=== PATIENT | male | born 1940 | race Caucasian/White ===

== ENCOUNTER 2022-03-23 12:34 | Emergency (ER) | payer MEDICARE ==
[~2022-03-23] VITALS: Ht 165.1 cm; Wt 58.1 kg
--- NOTE | 2022-03-23 13:15 | NUR ---
patient to radiology for head ct scan via gurney.
--- NOTE | 2022-03-23 13:31 | NUR ---
dr scott at bedside for eval.
--- NOTE | 2022-03-23 14:10 | NUR ---
CALLED [facility] ETA 60-70 MINUTES
[2022-03-23] MEDS ORDERED: TDAP [DIPH/PERTUSSIS/TET] 0.5 ML VIAL IM ONE ×2 (14:30→14:34)
--- NOTE | 2022-03-23 15:07 | NUR ---
REPORT GIVEN TO ROSELINE FOR FILIPE
--- NOTE | 2022-03-23 15:58 | NUR ---
[facility] UPDATED ETA 20-30 MINUTES
--- NOTE | 2022-03-23 16:51 | NUR ---
CALLED [facility] FOR UPDATE ETA 60 MINS. PER MIS
[2022-03-23 18:32] VITALS: BP 115/65
--- NOTE | 2022-03-23 18:32 | NUR ---
tranported back to snf. report given.
== END 2022-03-23 18:33 ==
LOC: ER 12:40
DX: S01.112A Laceration without foreign body of left eyelid and periocular area, initial encounter (principal); S09.90XA Unspecified injury of head, initial encounter; I10 Essential (primary) hypertension; E11.9 Type 2 diabetes mellitus without complications; E78.5 Hyperlipidemia, unspecified; F25.9 Schizoaffective disorder, unspecified; F41.9 Anxiety disorder, unspecified; G20 Parkinson's disease; W18.39XA Other fall on same level, initial encounter; Y93.89 Activity, other specified; Y92.89 Other specified places as the place of occurrence of the external cause; Y99.8 Other external cause status
CPT/HCPCS: 70450-TC; 90715

== ENCOUNTER 2022-09-17 10:30 | Inpatient (IN) | payer MEDICARE ==
[~2022-09-17] VITALS: Ht 162.6 cm; Wt 56.2 kg
--- NOTE | 2022-09-17 10:40 | NUR ---
TECH AT BEDSIDE FOR EKG
--- NOTE | 2022-09-17 10:45 | NUR ---
Blood drawn by Granite Polisher Apprentice at bedside
[2022-09-17 10:59] LABS: BASOPHILS % (AUTO) 0.2 % (0.0-2.0); EOSINOPHILS % (AUTO) 0.1 % (0.0-6.0); HEMATOCRIT 32 % (39-51); HEMOGLOBIN 9.9 g/dL (13.5-17.5); LYMPHOCYTES % (AUTO) 4.3 % (20.0-44.0); MEAN CORPUSCULAR HGB CONC 31 g/dl (31.0-36.0); MEAN CORPUSCULAR VOLUME 93 fL (80-96); MONOCYTES # (AUTO) 0.8 K/uL (0.1-1.30); MONOCYTES % (AUTO) 3.5 % (2.0-12.0); NEUTROPHILS # (AUTO) 21.6 K/uL (1.8-8.9); NEUTROPHILS % (AUTO) 91.9 % (43.0-81.0); PLATELET COUNT (AUTO) 378 K/uL (150-450); RED BLOOD CELL COUNT(AUTO) 3.37 MIL/uL (4.5-6.0); WHITE BLOOD COUNT (AUTO) 23.5 K/uL (4.3-11.0)
--- NOTE | 2022-09-17 11:09 | NUR ---
COVID SWAB COLLECTED AND SENT TO LAB
[2022-09-17] MEDS ORDERED: ACET-868 GT (11:25)
[2022-09-17] MEDS ORDERED: ALLA266C2 TP (11:25)
[2022-09-17] MEDS ORDERED: COLL30OI TP (11:25)
[2022-09-17] MEDS ORDERED: ACET650S26 GT (11:25)
[2022-09-17] MEDS ORDERED: NA P133E RC (11:25)
[2022-09-17] MEDS ORDERED: MULT-447 GT (11:25)
[2022-09-17] MEDS ORDERED: BISA10SU11 RC (11:25)
[2022-09-17] MEDS ORDERED: SITA1TAB6 GT (11:25)
[2022-09-17] MEDS ORDERED: LISI10TA29 GT (11:25)
[2022-09-17] MEDS ORDERED: GENT5DRO4 EACHEYE (11:25)
[2022-09-17] MEDS ORDERED: ASCO-340 TD (11:25)
[2022-09-17] MEDS ORDERED: GEL100GE TD (11:25)
[2022-09-17] MEDS ORDERED: NATE120T6 GT (11:25)
[2022-09-17] MEDS ORDERED: BACL10TA GT (11:25)
[2022-09-17] MEDS ORDERED: SENN-261 GT (11:25)
[2022-09-17] MEDS ORDERED: CARB1TAB21 GT (11:25)
[2022-09-17] MEDS ORDERED: MAGN400O6 GT (11:25)
[2022-09-17] MEDS ORDERED: AMIN30LI2 GT (11:25)
[2022-09-17] MEDS ORDERED: INSU100V10 SQ (11:25)
[2022-09-17] MEDS ORDERED: ZINC220C6 GT (11:25)
[2022-09-17] MEDS ORDERED: ENOX40DI SQ (11:25)
[2022-09-17] MEDS ORDERED: INSU100V27 SQ (11:25)
[2022-09-17] MEDS ORDERED: POVI3780 TP (11:25)
[2022-09-17] MEDS ORDERED: ATOR10TA GT (11:25)
[2022-09-17] MEDS ORDERED: ALLO100T GT (11:25)
[2022-09-17] MEDS ORDERED: NUT.250L18 GT (11:25)
[2022-09-17] MEDS ORDERED: DOCU-141 GT (11:25)
--- NOTE | 2022-09-17 11:25 | NUR ---
URINE SPECIMEN COLLECTED AND SENT TO LAB
[2022-09-17] MEDS ORDERED: LEVOFLOXACIN 750 MG /D5W 150ML PIGGYBACK IV ONE ×3 (11:30→12:30)
[2022-09-17 11:45] LABS: BILIRUBIN,URINE NEGATIVE (NEGATIVE); COLOR,URINE YELLOW (YELLOW); LEUKOCYTE ESTERASE ,URINE NEGATIVE (NEGATIVE); NITRITE, URINE NEGATIVE (NEGATIVE); PH,URINE 7.5 (5.0-8.0); PROTEIN,URINE NEGATIVE (NEGATIVE); UGLUCOSE TRACE mg/dL (NEGATIVE)
[2022-09-17 11:52] LABS: CALCIUM, SERUM 9.2 mg/dL (8.5-10.1); CARBON DIOXIDE 27 mmol/L (21-32); CHLORIDE 99 mmol/L (98-107); CREATININE 0.7 mg/dL (0.6-1.3); GLUCOSE 175 mg/dL (74-106); POTASSIUM 3.9 mmol/L (3.5-5.1); SODIUM SERUM 133 mmol/L (136-145); UREA NITROGEN, BLOOD 25 mg/dL (7-18)
--- NOTE | 2022-09-17 11:52 | NUR ---
SOLDERING MACHINE OPERATOR AT BEDSIDE FOR XRAY
[2022-09-17 11:57] LABS: BACTERIA,URINE None seen /HPF (None Seen); RBC,URINE NONE SEEN /HPF (0-2); SQUAMOUS EPITHELIAL CELL,UR Few /HPF (None Seen); WBC,URINE 0-2 /HPF (0-3)
[2022-09-17 11:58] LABS: ALANINE AMINOTRANSFERASE 68 U/L (12-78); ALBUMIN 1.7 g/dL (3.4-5.0); ALKALINE PHOSPHATASE 161 U/L (46-116); ASPARTATE AMINOTRANSFERASE 41 U/L (15-37); BILIRUBIN,TOTAL 0.3 mg/dL (0.2-1.0); LIPASE 83 U/L (73-393); TOTAL PROTEIN, SERUM 6.5 g/dL (6.4-8.2)
--- NOTE | 2022-09-17 12:01 | NUR ---
CALLED DR. MEAZ [phone] NOT OUTSIDE [employer]S SALES PLEASE CALL [facility] [facility] [employer].
--- NOTE | 2022-09-17 12:02 | NUR ---
CORRIE CALLED CONVEYOR BELT REPAIRER PAGED. EDWARD
[2022-09-17] MEDS ORDERED: MAG HYDROX/AL HYDROX/SIMETH 30 ML UDC PO PRN (12:30)
[2022-09-17] MEDS ORDERED: ACETAMINOPHEN 650 MG/20.3 ML UDC GT PRN (12:30)
[2022-09-17] MEDS ORDERED: NA PHOS,M-B/NA PHOS,DI-BA 1 EA ENEMA RC PRN (12:30)
[2022-09-17] MEDS ORDERED: ACETAMINOPHEN 325 MG TABLET PO PRN (12:30)
[2022-09-17] MEDS ORDERED: Z GUARD REMEDY 4 OZ OINT TP PRN (12:30)
[2022-09-17] MEDS ORDERED: ONDANSETRON HCL/PF 4 MG/2 ML VIAL IVP PRN (12:30)
[2022-09-17] MEDS ORDERED: DEXTROSE 50%-WATER 50 ML DISP.SYRIN IV PRN (12:30)
[2022-09-17] MEDS ORDERED: MAGNESIUM HYDROXIDE 30 ML UDC PO PRN (12:30)
[2022-09-17] MEDS ORDERED: OSMOLITE 1.2 CAL 1,000 ML LIQUID GT PRN (12:30)
--- NOTE | 2022-09-17 12:54 | NUR ---
ROOM ASSIGNED 306.1 ADMITTING AWARE.
[2022-09-17] MEDS ORDERED: MEROPENEM 500 MG in IV NS 0.9% 50 ML IV SCH (13:00)
[2022-09-17] MEDS: BACLOFEN (10 MG) 10 MG TABLET GT SCH ×2 (13:00→17:13)
[2022-09-17] MEDS: CARBIDOPA/LEVODOPA 25/100 MG 1 UDTAB GT SCH ×3 (13:00→21:11)
--- NOTE | 2022-09-17 13:03 | NUR ---
REPORT GIVEN TO AMRIK HOOKS ROOM 306-1 FOR FILIPE
[2022-09-17 13:35] VITALS: BP 117/75
--- NOTE | 2022-09-17 13:37 | NUR ---
PT TRANSFERRED TO 306 VIA [facility] ACLS PROTOCOL. WARM HANDOFF GIVEN TO RN ASSIGNED.
--- NOTE | 2022-09-17 13:40 | NUR ---
SUPERVISOR STRIPPING ADMITTING NOTE ADMITTING A 81 YEAR OLD MALE TO UNIT AT 1335 VIA [facility] WITH DX OF SOB AND POSSIBLY PNEUMONIA. PT IS A/OX0 AND NOT ABLE TO MAKE NEEDS KNOWN. V/S TAKEN AND STABLE. PT IS ON O2 NC @2L. RATTLING HEARD IN LUNGS, AND USES ACCESSORY MUSCLES TO BREATHE, BUT NOT CURRENTLY IN RESPIRATORY DISTRESS. PT ON TELE MONITOR WITH CURRENT READING AT NORMAL SR AND HR AT 80. IV ACCESS ON L WRIST #22G. IV FLUIDS NORMAL SALINE INFUSING AT 75ML/HR. NO SIGNS OF SWELLING OR INFILTRATION. ABDOMEN SOFT AND NON TENDER AND NON DISTENDED WITH BOWEL SOUNDS HEARD IN ALL 4 QUADRANTS. PHOTOS TAKEN OF VARIOUS SKIN ISSUES. G-TUBE PRESENT, DRY WITH NORMAL COLORING. SAFETY MEASURES IN PLACE WITH BED IN LOWEST LOCKED POSITION, CALL LIGHT AND TRAY WITHIN REACH, SAID RAILS UP X3, BED ALARM ON. WILL CONTINUE TO MONITOR.
[2022-09-17] MEDS ORDERED: VANCOMYCIN IV SCH (14:00)
[2022-09-17] MEDS ORDERED: SODIUM CHLORIDE IV SCH (14:00)
[2022-09-17] MEDS: GENTAMICIN OPTH SOLN 0.3% 5 ML BOTTLE EACHEYE SCH ×3 (14:15→21:41)
[2022-09-17] MEDS ORDERED: VANCOMYCIN 1 GM in IV D5W 250ml IV ONE (15:00)
[2022-09-17 16:00] VITALS: BP 131/71
[2022-09-17] MEDS: BLOOD SUGAR DIAGNOSTIC 1 EACH STRIP VI SCH ×2 (17:36→21:48)
[2022-09-17] MEDS: INSULIN REGULAR, HUMAN 100 UNIT/ML 3 ML VIAL SQ PRN ×2 (17:39→22:07)
[2022-09-17 18:41] VITALS: BP 131/71
--- NOTE | 2022-09-17 19:05 | NUR ---
SHIRT SORTER CLOSINGG NOTE PT IN BED SLEEPING. PT IS A/OX0 AND NOT ABLE TO MAKE NEEDS KNOWN. V/S TAKEN AND STABLE. PT IS ON O2 NC @2L. RATTLING HEARD IN LUNGS, AND USES ACCESSORY MUSCLES TO BREATHE, BUT NOT CURRENTLY IN RESPIRATORY DISTRESS. PT ON TELE MONITOR WITH CURRENT READING AT NORMAL SR AND HR AT 80. IV ACCESS ON L WRIST #22G. IV FLUIDS NORMAL SALINE INFUSING AT 75ML/HR. NO SIGNS OF SWELLING OR INFILTRATION.G-TUBE FEEDING AT 50ML/HR OSMOLITE 1.2. PHOTOS TAKEN OF VARIOUS SKIN ISSUES. GSAFETY MEASURES IN PLACE WITH BED IN LOWEST LOCKED POSITION, CALL LIGHT AND TRAY WITHIN REACH, SAID RAILS UP X3, BED ALARM ON. WILL CONTINUE TO MONITOR.
--- NOTE | 2022-09-17 19:30 | NUR ---
MALTSTER OPENING NOTE RECEIVED PATIENT IN BED; AWAKE, ALERT AND ORIENTED X 0. NONVERBAL. ON O2 INHALATION @ 2 LPM VIA NASAL CANNULA; TOLERATING WELL. NOT IN ANY FORM OF RESPIRATORY OR CARDIAC DISTRESS. NO S/S OF PAIN OR DISCOMFORT NOTED AT THIS TIME. WITH IV ACCESS ON LEFT WRIST 20g; PATENT AND INTACT INFUSING WITH D5 1/2 NS 1L RUNNING @ 75 ML/HR; FLUSHES WELL. WITH G-TUBE IN PLACE; PATENT AND INTACT. NO RESIDUAL NOTED. TUBE FEEDING STARTED WITH OSMOLITE 1.2 REGULATED @ 50 ML/HR; FLUSHING WELL. SAFETY PRECAUTIONS IMPLEMENTED: HEAD OF BED ELEVATED, CALL LIGHT AND TABLE WITHIN REACH, SIDE RAILS UP X 3, BED IN LOWEST LOCKED POSITION. WILL CONTINUE PLAN OF CARE. Addendum: 09/18/22 at 0500 by TRAY BETHEA RN ON EXTERNAL CARDIAC MONITORING WITH CURRENT READING OF SINUS RHYTHM HR-81 BPM.
[2022-09-17 20:00] VITALS: BP_SYST 130; BP_DIAS 61; BP_DIAS 64
[2022-09-17] MEDS: ATORVASTATIN 10 MG TABLET GT SCH (21:11)
[2022-09-17] MEDS: SENNOSIDES 8.6 MG TABLET GT SCH (21:11)
[2022-09-17] MEDS ORDERED: MAGNESIUM HYDROXIDE 30 ML UDC GT PRN (22:00)
[2022-09-17] MEDS: INSULIN GLARGINE, 100 UNIT/ML CARTRIDGE SQ SCH (22:06)
[2022-09-18] VITALS: BP 142/74
[2022-09-18] MEDS: GENTAMICIN OPTH SOLN 0.3% 5 ML BOTTLE EACHEYE SCH ×6 (02:36→21:52)
[2022-09-18] MEDS: VANCOMYCIN HCL 0.75 GM in IV D5W 250 ML IV SCH ×2 (02:56→15:16)
[2022-09-18 04:00] VITALS: BP 144/67
[2022-09-18] MEDS: IV NS 0.9% 1,000 ML IV PRN ×2 (05:18→17:06)
[2022-09-18] MEDS: BLOOD SUGAR DIAGNOSTIC 1 EACH STRIP VI SCH ×4 (05:48→21:51)
[2022-09-18] MEDS: INSULIN REGULAR, HUMAN 100 UNIT/ML 3 ML VIAL SQ PRN ×4 (06:20→22:00)
--- NOTE | 2022-09-18 06:45 | NUR ---
FRAMING MILL OPERATOR HELPER CLOSING NOTE PATIENT IN BED; AWAKE, A/O X 0. NONVERBAL. ON O2 INHALATION @ 2 LPM VIA NASAL CANNULA; WELL TOLERATED. IN NO ACUTE DISTRESS. NO S/S OF PAIN OR DISCOMFORT. WITH IV ACCESS ON LEFT WRIST 20g; PATENT AND INTACT INFUSING WITH D5 1/2 NS 1L RUNNING @ 75 ML/HR; FLUSHES WELL. WITH G-TUBE IN PLACE; PATENT AND INTACT. NO RESIDUAL NOTED. ON TUBE FEEDING WITH OSMOLITE 1.2 REGULATED @ 50 ML/HR. SAFETY PRECAUTIONS IN PLACE: HEAD OF BED ELEVATED, CALL LIGHT AND TABLE WITHIN REACH, SIDE RAILS UP X 3, BED IN LOWEST LOCKED POSITION. ENDORSED TO MORNING SHIFT FOR FILIPE.
--- NOTE | 2022-09-18 07:30 | NUR ---
RN OPENING NOTE PATIENT AWAKE IN BED RESTING, A/O X 0, NON-VERBAL. NO S/S OF PAIN NOTED AT THIS TIME. ON 2L OXYGEN VIA NC, NO SHORTNESS OF BREATH, NO DISTRESS NOTED. IV ACCESS L WRIST #22G, INTACT, PATENT AND FLUSHING WELL. PATIENT ON EXTERNAL AD TRAFFICKER WITH CURRENT READING OF SR AND HR OF 78, NO CARDIAC DISTRESS NOTED. FALL AND SAFETY MEASURES IN PLACE, BED ALARM ON, BED IN LOW AND LOCK POSITION, CALL LIGHT AND TABLE WITHIN EASY REACH, SIDE RAILS UP X2. WILL CONTINUE TO MONITOR.
[2022-09-18 07:39] LABS: CALCIUM, SERUM 9.2 mg/dL (8.5-10.1); CREATININE 0.6 mg/dL (0.6-1.3); MAGNESIUM 1.8 mg/dL (1.8-2.4); POTASSIUM 3.9 mmol/L (3.5-5.1)
[2022-09-18 08:08] VITALS: BP 143/74
[2022-09-18 08:47] LABS: BASOPHILS % (AUTO) 0.1 % (0.0-2.0); EOSINOPHILS % (AUTO) 0.3 % (0.0-6.0); HEMATOCRIT 31 % (39-51); HEMOGLOBIN 9.6 g/dL (13.5-17.5); LYMPHOCYTES # (AUTO) 0.8 K/uL (0.8-4.8); LYMPHOCYTES % (AUTO) 4.2 % (20.0-44.0); MEAN CORPUSCULAR HGB CONC 31 g/dl (31.0-36.0); MEAN CORPUSCULAR VOLUME 93 fL (80-96); MONOCYTES % (AUTO) 5.4 % (2.0-12.0); NEUTROPHILS # (AUTO) 16.1 K/uL (1.8-8.9); PLATELET COUNT (AUTO) 279 K/uL (150-450); RED BLOOD CELL COUNT(AUTO) 3.31 MIL/uL (4.5-6.0); WHITE BLOOD COUNT (AUTO) 17.9 K/uL (4.3-11.0)
[2022-09-18] MEDS ORDERED: COLLAGENASE 30 GM TUBE TP SCH (09:00)
[2022-09-18] MEDS ORDERED: DOCUSATE SODIUM 100 MG CAPSULE PO SCH (09:00)
[2022-09-18] MEDS: THERAHONEY GEL 1.5 OZ TUBE TP SCH (09:23)
[2022-09-18] MEDS: BISACODYL SUPP (10 MG) 10 MG/SUPP.RECT SUPP.RECT RC SCH (09:24)
[2022-09-18] MEDS: BACLOFEN (10 MG) 10 MG TABLET GT SCH ×3 (09:24→16:57)
[2022-09-18] MEDS: ALLOPURINOL 100 MG TABLET GT SCH (09:24)
[2022-09-18] MEDS: DOCUSATE SODIUM LIQ 100 MG/10 ML UDC GT SCH (09:24)
[2022-09-18] MEDS: CARBIDOPA/LEVODOPA 25/100 MG 1 UDTAB GT SCH ×4 (09:24→21:50)
[2022-09-18] MEDS: ACETAMINOPHEN 650 MG/20.3 ML UDC GT SCH (09:24)
[2022-09-18] MEDS: LISINOPRIL (10MG) 10 MG TABLET GT SCH (09:25)
[2022-09-18 12:00] VITALS: BP 120/58
[2022-09-18] MEDS: LEVOFLOXACIN 750 MG /D5W 150ML 750 MG in PREMIX 1 EA IV SCH (13:18)
[2022-09-18] MEDS: PROSOURCE / PROSTAT (PYXIS) 30 ML UDC GT SCH ×2 (13:52→16:59)
[2022-09-18] MEDS: ENOXAPARIN SODIUM 40 MG/0.4 ML DISP.SYRIN SQ SCH (15:17)
[2022-09-18] MEDS ORDERED: OSMOLITE 1.2 CAL 1,000 ML LIQUID GT PRN (15:30)
[2022-09-18 16:06] VITALS: BP 118/64
--- NOTE | 2022-09-18 18:46 | NUR ---
RN CLOSING NOTE PATIENT AWAKE IN BED RESTING, A/O X 0, NON-VERBAL. NO S/S OF PAIN NOTED AT THIS TIME. ON 2L OXYGEN VIA NC, NO SHORTNESS OF BREATH, NO DISTRESS NOTED. IV ACCESS L WRIST #22G, INTACT, PATENT AND FLUSHING WELL. PATIENT ON EXTERNAL DIRECTOR EMERGENCY DEPARTMENT WITH CURRENT READING OF SR AND HR OF 75, NO CARDIAC DISTRESS NOTED. SCHEDULE MEDICATIONS ADMINISTERED. WOUND CARE IMPLEMENTED. PATIENT WAS TURNED AND REPOSITIONED PER PROTOCOL. FALL AND SAFETY MEASURES IN PLACE, BED ALARM ON, BED IN LOW AND LOCK POSITION, CALL LIGHT AND TABLE WITHIN EASY REACH, SIDE RAILS UP X2. WILL ENDORSE TO WINDMILL MECHANIC NURSE.
--- NOTE | 2022-09-18 19:43 | NUR ---
RN OPENING NOTE PATIENT ASLEEP IN BED. A/OX0, NON-VERBAL. NO S/S OF DISTRESS, BREATHING WITHOUT DIFFICULTY ON 2L NC. L-WRIST INTACT AND PATENT W/ NS 75ML/HR. GT OSMOLITE 1.2 @50ML/HR. TELE READS SR 70. SAFETY MEASURES IN PLACE: BED LOCKED IN PLACE & AT LOWEST POSITION, RAILS UPX2, CALL JEAN BAPTISTE WITHIN REACH. WILL CONTINUE TO MONITOR PATIENT.
[2022-09-18 20:00] VITALS: BP 120/93
[2022-09-18] MEDS: ATORVASTATIN 10 MG TABLET GT SCH (21:50)
[2022-09-18] MEDS: SENNOSIDES 8.6 MG TABLET GT SCH (21:52)
[2022-09-18] MEDS: INSULIN GLARGINE, 100 UNIT/ML CARTRIDGE SQ SCH (22:01)
[2022-09-19] VITALS: BP 130/62
[2022-09-19] MEDS: GENTAMICIN OPTH SOLN 0.3% 5 ML BOTTLE EACHEYE SCH ×6 (00:13→20:36)
[2022-09-19] MEDS: VANCOMYCIN HCL 0.75 GM in IV D5W 250 ML IV SCH ×2 (03:20→15:53)
[2022-09-19 04:00] VITALS: BP 114/85
[2022-09-19] MEDS: IV NS 0.9% 1,000 ML IV PRN (05:15)
[2022-09-19 05:55] LABS: BASOPHILS % (AUTO) 0.1 % (0.0-2.0); EOSINOPHILS % (AUTO) 0.5 % (0.0-6.0); HEMATOCRIT 30 % (39-51); HEMOGLOBIN 9.4 g/dL (13.5-17.5); MEAN CORPUSCULAR HGB CONC 31 g/dl (31.0-36.0); MEAN CORPUSCULAR VOLUME 94 fL (80-96); MONOCYTES # (AUTO) 0.9 K/uL (0.1-1.30); NEUTROPHILS # (AUTO) 10.4 K/uL (1.8-8.9); NEUTROPHILS % (AUTO) 84.4 % (43.0-81.0); PLATELET COUNT (AUTO) 266 K/uL (150-450); RED BLOOD CELL COUNT(AUTO) 3.19 MIL/uL (4.5-6.0); WHITE BLOOD COUNT (AUTO) 12.4 K/uL (4.3-11.0)
[2022-09-19 06:10] LABS: CALCIUM, SERUM 9.1 mg/dL (8.5-10.1); CARBON DIOXIDE 28 mmol/L (21-32); CHLORIDE 102 mmol/L (98-107); CREATININE 0.6 mg/dL (0.6-1.3); GLUCOSE 175 mg/dL (74-106); MAGNESIUM 1.7 mg/dL (1.8-2.4); SODIUM SERUM 136 mmol/L (136-145); UREA NITROGEN, BLOOD 15 mg/dL (7-18)
[2022-09-19] MEDS: BLOOD SUGAR DIAGNOSTIC 1 EACH STRIP VI SCH ×4 (06:30→21:07)
[2022-09-19] MEDS: INSULIN REGULAR, HUMAN 100 UNIT/ML 3 ML VIAL SQ PRN ×4 (06:31→21:16)
--- NOTE | 2022-09-19 07:15 | NUR ---
PRECISION AIRCRAFT STRUCTURE ASSEMBLER OPENING NOTE RECEIVED PATIENT ASLEEP IN BED, A/OX0, NON-VERBAL. NO NOTED S/S OF ANY ACUTE DISTRESS. ON 2LPM VIA NC SATURATING AT 94-96% WITH NO SOB NOTED. IV ACCESS ON L-WRIST G#22 INTACT AND PATENT WITH RUNNING NS @ 75ML/HR. GTF WITH OSMOLITE 1.2 @50ML/HR. TELEMONITORING READS SR 80. SAFETY MEASURES IN PLACE: BED LOCKED AT LOWEST POSITION, RAILS UPX2, CALL JEAN BAPTISTE AND TRAY TABLE WITHIN EASY REACH. WILL CONTINUE TO MONITOR PATIENT.
[2022-09-19 08:00] VITALS: BP 162/78
--- NOTE | 2022-09-19 08:15 | NUR ---
RN NOTES - WOUND ASSESSMENT WITH NURSE SARIKA, EXTENSIVE WOUNDS PRESENT - LEFT ARM WEEPING EDEMA, BEHIND EARS WOUNDS, BILATERAL HEEL DTI, SACRAL DTI, ISOFLEX BED PUMP ACTIVATED, TURNED PATIENT AND FLOATED EXTREMITIES.
[2022-09-19] MEDS: ACETAMINOPHEN 650 MG/20.3 ML UDC GT SCH (08:45)
[2022-09-19] MEDS: BACLOFEN (10 MG) 10 MG TABLET GT SCH ×3 (08:45→17:10)
[2022-09-19] MEDS: DOCUSATE SODIUM LIQ 100 MG/10 ML UDC GT SCH (08:45)
[2022-09-19] MEDS: CARBIDOPA/LEVODOPA 25/100 MG 1 UDTAB GT SCH ×4 (08:45→21:06)
[2022-09-19] MEDS: BISACODYL SUPP (10 MG) 10 MG/SUPP.RECT SUPP.RECT RC SCH (08:45)
[2022-09-19] MEDS: ALLOPURINOL 100 MG TABLET GT SCH (08:46)
[2022-09-19] MEDS: LISINOPRIL (10MG) 10 MG TABLET GT SCH (08:46)
[2022-09-19] MEDS: PROSOURCE / PROSTAT (PYXIS) 30 ML UDC GT SCH ×3 (08:47→17:10)
[2022-09-19] MEDS: THERAHONEY GEL 1.5 OZ TUBE TP SCH ×2 (08:47→21:06)
--- NOTE | 2022-09-19 08:52 | NUR ---
WOUND CARE CONSULT: PT PRESENTS WITH MULTIPLE WOUNDS AND SKIN ISSUES INCLUDING LEFT SCALP LESION, RT POSTERIOR EAR WOUND, LEFT EAR DEEP TISSUE INJURY, SACRAL UNSTAGEABLE PRESSURE ULCER, WEEPING EDEMA TO LEFT ARM, DEEP TISSUE INJURIES TO BILATERAL HEELS, ALL PRESENT ON ADMISSION. SURGICAL AND DPM CONSULTS CALLED TO DR GUEVARA AND DR BAY. DISCUSSED SKIN PROTECTION WITH NURSING STAFF. PT IS INCONTINENT. PT PLACED ON CHUGWATER ISOFLEX LOW AIRLOSS BED. IN AGREEMENT WITH PLAN OF CARE. Addendum: 09/19/22 at 0854 by SARIKA DUBOSE WNDNU Amended: Links added.
--- NOTE | 2022-09-19 09:00 | NUR ---
RN NOTES - CONDOM CATH STARTED, WOUND CARE PROVIDED.
[2022-09-19] MEDS: LEVOFLOXACIN 750 MG /D5W 150ML 750 MG in PREMIX 1 EA IV SCH (11:54)
[2022-09-19 12:00] VITALS: BP 143/76
[2022-09-19] MEDS: Magnesium 1GM/D5W 100ML PREMIX 100 ML IV SCH ×2 (12:22→14:33)
--- NOTE | 2022-09-19 12:40 | NUR ---
RN NOTES - TELEMETRY DC'D BY DR MEZA
[2022-09-19] MEDS: ENOXAPARIN SODIUM 40 MG/0.4 ML DISP.SYRIN SQ SCH (15:55)
[2022-09-19 16:00] VITALS: BP 157/80
--- NOTE | 2022-09-19 16:47 | NUR ---
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 ORDERED BACTROBAN OINTMENT FOR BOTH NARES PER PROTOCOL
--- NOTE | 2022-09-19 19:22 | NUR ---
MS RN CLOSING NOTE PATIENT ASLEEP IN BED, A/OX0, NON-VERBAL. NO NOTED S/S OF ANY ACUTE DISTRESS. STILL ON 2LPM VIA NC SATURATING AT 96% WITH NO SOB NOTED. IV ACCESS ON L-WRIST G#22 SALINE LOCKED, INTACT AND PATENT. GTF WITH OSMOLITE 1.2 @50ML/HR. ALL NEEDS MET, ALL DUE MEDS GIVEN. SAFETY MEASURES IN PLACE: BED LOCKED AT LOWEST POSITION, RAILS UPX2, CALL JEAN BAPTISTE AND TRAY TABLE WITHIN EASY REACH. ENDORSED TO BRAINER NURSE.
--- NOTE | 2022-09-19 19:30 | NUR ---
MS RN OPENING NOTE PATIENT ASLEEP IN BED, A/OX0, NON-VERBAL. NO NOTED S/S OF ANY ACUTE DISTRESS. STILL ON 2LPM VIA NC SATURATING AT 96% WITH NO SOB NOTED. IV ACCESS ON L-WRIST G#22 SALINE LOCKED, INTACT AND PATENT. GTF WITH OSMOLITE 1.2 @50ML/HR. ALL NEEDS MET. SAFETY MEASURES IN PLACE: BED LOCKED AT LOWEST POSITION, RAILS UPX2, CALL JEAN BAPTISTE AND TRAY TABLE WITHIN EASY REACH.
[2022-09-19 20:00] VITALS: BP 148/75
[2022-09-19] MEDS: MUPIROCIN OINT 2% 22 GM TUBE NS SCH (20:42)
[2022-09-19] MEDS: SENNOSIDES 8.6 MG TABLET GT SCH (21:06)
[2022-09-19] MEDS: ATORVASTATIN 10 MG TABLET GT SCH (21:06)
[2022-09-19] MEDS: INSULIN GLARGINE, 100 UNIT/ML CARTRIDGE SQ SCH (21:17)
[2022-09-20] MEDS: GENTAMICIN OPTH SOLN 0.3% 5 ML BOTTLE EACHEYE SCH ×3 (01:05→08:47)
[2022-09-20] MEDS: VANCOMYCIN HCL 0.75 GM in IV D5W 250 ML IV SCH (03:17)
[2022-09-20] MEDS ORDERED: LIDOCAINE 1%-EPI 1:100,000 20 ML VIAL TP ONE (06:00)
[2022-09-20] MEDS: INSULIN REGULAR, HUMAN 100 UNIT/ML 3 ML VIAL SQ PRN ×3 (06:28→16:56)
[2022-09-20] MEDS: BLOOD SUGAR DIAGNOSTIC 1 EACH STRIP VI SCH ×4 (06:31→21:11)
[2022-09-20 06:37] LABS: CALCIUM, SERUM 9.2 mg/dL (8.5-10.1); CREATININE 0.7 mg/dL (0.6-1.3); MAGNESIUM 1.8 mg/dL (1.8-2.4); POTASSIUM 3.8 mmol/L (3.5-5.1)
--- NOTE | 2022-09-20 06:53 | NUR ---
RN NOTE OBTAINED CONSENT FOR DEBRIDEMENT FROM BROTHER RENY VIA TELEPHONE ALL QUESTIONS ANSWERED AT THIS TIME. VERIFIED WITH ANOTHER RN. PT AT THIS TIME IS ASLEEP IN BED NO DISTRESS NOTED. REMAINS ON 2L TOLERATING WELL. HOB ELEVATED FOR ASPIRATION PRECAUTIONS FREQUENT ORAL SUCTIONING PROVIDED. ALL DUE MEDS GIVEN AND TOLERATED WELL. CALL LIGHT WITHIN EACH.,TABLE WITHIN REACH. BED IN LOW LOCKED POSITION WILL ENDORSE TO DAY SHIFT NURSE.
[2022-09-20 07:00] VITALS: BP 141/80
--- NOTE | 2022-09-20 07:33 | NUR ---
RN OPENING NOTES RECEIVED PATIENT IN BED ON HIGH BACK REST POSITION, A/O X 0. HOOKED TO NC AT 2 LPM, BREATH EVENLY NO EPISODES OF CONGESTION AND SHORTNESS OF BREATH AT THIS TIME. WITH ONGOING LEFT WRIST #22G PATENT AND INTACT. ON CONDOM CATHETER INTACT NOTED URINE. SAFETY PRECAUTIONS MAINTAINED. KEPT BED IN LOWER LOCKED POSITION. WILL CONTINUE TO MONITOR,
[2022-09-20] MEDS: CARBIDOPA/LEVODOPA 25/100 MG 1 UDTAB GT SCH ×4 (08:45→21:19)
[2022-09-20] MEDS: BACLOFEN (10 MG) 10 MG TABLET GT SCH ×3 (08:46→16:10)
[2022-09-20] MEDS: BISACODYL SUPP (10 MG) 10 MG/SUPP.RECT SUPP.RECT RC SCH (08:46)
[2022-09-20] MEDS: ACETAMINOPHEN 650 MG/20.3 ML UDC GT SCH (08:46)
[2022-09-20] MEDS: ALLOPURINOL 100 MG TABLET GT SCH (08:46)
[2022-09-20] MEDS: LISINOPRIL (10MG) 10 MG TABLET GT SCH (08:46)
[2022-09-20] MEDS: DOCUSATE SODIUM LIQ 100 MG/10 ML UDC GT SCH (08:46)
[2022-09-20] MEDS: THERAHONEY GEL 1.5 OZ TUBE TP SCH ×2 (08:53→08:57)
[2022-09-20] MEDS: PROSOURCE / PROSTAT (PYXIS) 30 ML UDC GT SCH ×3 (08:54→16:09)
[2022-09-20] MEDS: MUPIROCIN OINT 2% 22 GM TUBE NS SCH ×2 (08:59→21:20)
[2022-09-20] MEDS ORDERED: LIDOCAINE 2%-EPI 1:100,000 30 ML VIAL TP ONE (09:30)
[2022-09-20] MEDS: SILVER NITRATE APPLICATOR 1 EA BOX TP SCH ×2 (11:04→11:05)
--- NOTE | 2022-09-20 11:06 | NUR ---
RN NOTES DEBRIDEMENT DONE ON SACRAL AND RIGHT EAR WOUND BY KIERRA GARCÍA. WILL CONTINUE TO MONITOR
[2022-09-20] MEDS: LEVOFLOXACIN 750 MG /D5W 150ML 750 MG in PREMIX 1 EA IV SCH (11:26)
[2022-09-20] MEDS: ENOXAPARIN SODIUM 40 MG/0.4 ML DISP.SYRIN SQ SCH (14:21)
[2022-09-20] MEDS: GLUCERNA 1.2 1,000 ML BOTTLE GT PRN (15:50)
[2022-09-20 16:00] VITALS: BP 123/61
--- NOTE | 2022-09-20 19:14 | NUR ---
RN CLOSING NOTES PATIENT IN BED MAINTAINED ON MODERATE HIGH BACK REST POSITON. A/O X 0 NON-VERBAL BUT RESPONSE TO PAIN STIMULI. NO EPISODES OF DIFFICULTY OF BREATHING AND PAIN AT THIS TIME. WITH IV ACCESS AT LEFT WRIST #22G. PATENT AND INTACT. ON G-TUBE FEEDING GLUCERNA 1.2 AT 55ML/HR. SUCTION ORAL SECREATIONS NEEDED.WOUND CARE DONE. ALL DUE MEDICATIONS GIVEN. ALL NEEDS MET. SAFETY PRECAUTIONS MAINTAINED. KEPT BED AT LOWER LOCKED POSITION. KEPT SIDE RAILS UP X 4. WILL ENDORSED TO PROBATION AGENT FOR FILIPE.
--- NOTE | 2022-09-20 19:29 | NUR ---
MS RN OPENING NOTE RECEIVED PT RESTING IN BED, RESPONSIVE TO TACTILE STIMULI. A/O X0 AND NONVERBAL. PT ON O2 @ 2LPM VIA NC, TOLERATING WELL. NO SOB OR S/S OF RESPIRATORY DISTRESS. BREATHING EVEN AND UNLABORED. IV ACCESS L WRIST 22G, INTACT AND PATENT. WITH GTUBE RUNNING GLUCERNA 1.2 @ 55 ML/HR, TOLERATING WELL. SAFETY PRECAUTIONS IN PLACE. BED IN LOWEST LOCKED POSITION, HOB ELEVATED, SIDE RAILS UP X3, AND CALL LIGHT AND TABLE WITHIN REACH. ALL NEEDS MET AT THIS TIME.
[2022-09-20 20:00] VITALS: BP 110/67
[2022-09-20] MEDS: ATORVASTATIN 10 MG TABLET GT SCH (21:19)
[2022-09-20] MEDS: SENNOSIDES 8.6 MG TABLET GT SCH (21:19)
[2022-09-20] MEDS: INSULIN GLARGINE, 100 UNIT/ML CARTRIDGE SQ SCH (21:22)
[2022-09-20] MEDS: *INSULIN REGULAR(HUMULIN R)HUM 100 UNIT/ML VIAL SQ PRN (21:23)
[2022-09-21] MEDS: BLOOD SUGAR DIAGNOSTIC 1 EACH STRIP VI SCH ×4 (06:33→22:38)
[2022-09-21] MEDS: INSULIN REGULAR, HUMAN 100 UNIT/ML 3 ML VIAL SQ PRN (06:34)
--- NOTE | 2022-09-21 06:43 | NUR ---
MS RN CLOSING NOTE PT RESTING IN BED, RESPONSIVE TO TACTILE STIMULI. A/O X0 AND NONVERBAL. PT ON O2 @ 2LPM VIA NC, TOLERATING WELL. NO SOB OR S/S OF RESPIRATORY DISTRESS. BREATHING EVEN AND UNLABORED. FREQUENT ORAL SUCTIONING PROVIDED. IV ACCESS L WRIST 22G, INTACT AND PATENT. WITH GTUBE RUNNING GLUCERNA 1.2 @ 55 ML/HR, TOLERATING WELL, NO RESIDUAL. KEPT CLEAN AND DRY. CONDOM CATHETER REPLACED. ALL DUE MEDS GIVEN ORDERED. TURNED AND REPOSITIONED Q2H. SAFETY PRECAUTIONS IN PLACE AT ALL TIMES. BED IN LOWEST LOCKED POSITION, HOB ELEVATED, SIDE RAILS UP X3, AND CALL LIGHT AND TABLE WITHIN REACH. ALL NEEDS MET AT THIS TIME AND WILL ENDORSE TO ONCOMING NURSE FOR FILIPE.
[2022-09-21 07:00] VITALS: BP 149/83
[2022-09-21 07:10] LABS: CALCIUM, SERUM 7.5 mg/dL (8.5-10.1); CARBON DIOXIDE 30 mmol/L (21-32); CHLORIDE 107 mmol/L (98-107); CREATININE 0.6 mg/dL (0.6-1.3); GLUCOSE 189 mg/dL (74-106); POTASSIUM 4.2 mmol/L (3.5-5.1); SODIUM SERUM 138 mmol/L (136-145); UREA NITROGEN, BLOOD 26 mg/dL (7-18)
--- NOTE | 2022-09-21 07:15 | NUR ---
MS RN OPENING NOTE RECEIVED PT RESTING IN BED, RESPONSIVE TO TACTILE STIMULI. A/O X0 AND NONVERBAL. PT ON O2 @ 2LPM VIA NC, TOLERATING WELL. NO SOB OR S/S OF RESPIRATORY DISTRESS. SUCTIONED ORAL SECRETION, TOLERATED WELL. WITH IV ACCESS L WRIST 22G, INTACT AND PATENT. WITH G-TUBE RUNNING GLUCERNA 1.2 @ 55 ML/HR, TOLERATING WELL. SAFETY PRECAUTIONS IN PLACE. MAINTAINED ON MODERATE TO HIGH BACK REST. ON STRICT ASPIRATION PRECUATION. BED IN LOWEST LOCKED POSITION, HOB ELEVATED, SIDE RAILS UP X3, AND CALL LIGHT AND TABLE WITHIN REACH. WILL CONTINUE WITH PLAN OF CARE.
[2022-09-21] MEDS: LISINOPRIL (10MG) 10 MG TABLET GT SCH (08:08)
[2022-09-21] MEDS: BISACODYL SUPP (10 MG) 10 MG/SUPP.RECT SUPP.RECT RC SCH (08:09)
[2022-09-21] MEDS: ALLOPURINOL 100 MG TABLET GT SCH (08:09)
[2022-09-21] MEDS: CARBIDOPA/LEVODOPA 25/100 MG 1 UDTAB GT SCH ×4 (08:09→22:02)
[2022-09-21] MEDS: BACLOFEN (10 MG) 10 MG TABLET GT SCH ×3 (08:10→17:18)
[2022-09-21] MEDS: DOCUSATE SODIUM LIQ 100 MG/10 ML UDC GT SCH (08:10)
[2022-09-21] MEDS: ACETAMINOPHEN 650 MG/20.3 ML UDC GT SCH (08:11)
[2022-09-21] MEDS: SILVER NITRATE APPLICATOR 1 EA BOX TP SCH (09:00)
[2022-09-21] MEDS: PROSOURCE / PROSTAT (PYXIS) 30 ML UDC GT SCH ×3 (09:11→17:18)
[2022-09-21] MEDS: IPRATROPIUM NEB FS 0.5 MG/2.5 ML AMPUL.NEB NEB SCH ×3 (09:30→20:18)
--- NOTE | 2022-09-21 09:30 | NUR ---
MS HOOKS NOTE SEEN BY DR. MEZA Addendum: 09/21/22 at 1621 by RENATO THOMPSON RN SEEN BY DR. WRIGHT AT [id number]
[2022-09-21] MEDS: MUPIROCIN OINT 2% 22 GM TUBE NS SCH ×2 (09:32→22:02)
[2022-09-21] MEDS: THERAHONEY GEL 1.5 OZ TUBE TP SCH (09:32)
[2022-09-21] MEDS: LEVOFLOXACIN 750 MG /D5W 150ML 750 MG in PREMIX 1 EA IV SCH (13:01)
--- NOTE | 2022-09-21 14:30 | NUR ---
MS RN NOTE SEEN BY DR. MEZA
[2022-09-21] MEDS: ENOXAPARIN SODIUM 40 MG/0.4 ML DISP.SYRIN SQ SCH (15:51)
[2022-09-21 16:00] VITALS: BP 112/74
[2022-09-21] MEDS: GLUCERNA 1.2 1,000 ML BOTTLE GT PRN (16:24)
--- NOTE | 2022-09-21 19:10 | NUR ---
MS RN CLOSING NOTE PT RESTING IN BED, RESPONSIVE TO TACTILE STIMULI. A/O X0 AND NONVERBAL. PT ON O2 @ 2LPM VIA NC, TOLERATING WELL. NO SOB OR S/S OF RESPIRATORY DISTRESS. SUCTIONED ORAL SECRETION, TOLERATED WELL. WITH IV ACCESS L WRIST 22G, INTACT AND PATENT. WITH G-TUBE RUNNING GLUCERNA 1.2 @ 55 ML/HR, TOLERATING WELL. SAFETY PRECAUTIONS IN PLACE. MAINTAINED ON MODERATE TO HIGH BACK REST. ON STRICT ASPIRATION PRECAUTION. BED IN LOWEST LOCKED POSITION, HOB ELEVATED, SIDE RAILS UP X3, AND CALL LIGHT AND TABLE WITHIN REACH. ENDORSED TO NEXT SHIFT FOR CONTINUITY OF CARE.
--- NOTE | 2022-09-21 19:53 | NUR ---
MS RN OPENING NOTES: RECEIVED PATIENT SLEEP IN BED COMFORTABLY HOB AT 45 DEGREE BED IN LOW POSITION CALL LIGHTS WITHIN REACH, NO COMPLAIN OF PAIN AND DISCOMFORT AT THIS TIE ,ON O2 INHALATION AT 2LPM SATURATING WELL, PATIENT ON NPO ON G TUBE FEEDING OF GLUCERNA 1.2@55ML/HR INFUSING WELL, PATIENT ON CONDOM CATHETER, KEPT CLEAN AND DRY ALL NEEDS MET WILL CONTINUE TO MONITOR,.
[2022-09-21 20:00] VITALS: BP 118/72
[2022-09-21] MEDS: ATORVASTATIN 10 MG TABLET GT SCH (22:02)
[2022-09-21] MEDS: SENNOSIDES 8.6 MG TABLET GT SCH (22:02)
[2022-09-21] MEDS: INSULIN GLARGINE, 100 UNIT/ML CARTRIDGE SQ SCH (22:36)
[2022-09-21] MEDS: *INSULIN REGULAR(HUMULIN R)HUM 100 UNIT/ML VIAL SQ PRN (22:38)
[2022-09-22] MEDS: IPRATROPIUM NEB FS 0.5 MG/2.5 ML AMPUL.NEB NEB SCH ×4 (01:34→19:51)
[2022-09-22 06:03] LABS: CARBON DIOXIDE 29 mmol/L (21-32); CHLORIDE 106 mmol/L (98-107); CREATININE 0.6 mg/dL (0.6-1.3); GLUCOSE 224 mg/dL (74-106); POTASSIUM 4.2 mmol/L (3.5-5.1); SODIUM SERUM 138 mmol/L (136-145); UREA NITROGEN, BLOOD 29 mg/dL (7-18)
[2022-09-22] MEDS: INSULIN REGULAR, HUMAN 100 UNIT/ML 3 ML VIAL SQ PRN ×3 (06:33→16:59)
--- NOTE | 2022-09-22 06:49 | NUR ---
RN NOTES: BLOOD SUGAR-203/6 UNITS INSULIN GIVEN PER SLIDING SCALE.
--- NOTE | 2022-09-22 06:50 | NUR ---
RN CLOSING NOTES: PATIENT SLEEP IN BED COMFORTABLY, ON O2 INHALATION AT 2LPM SATURATING WELL, NO SOB WAS OBSERVED, REPOSITION, ON G TUBE FEEDING OF GLUCERNA 1.2@55ML/HR INFUSING WELL, PATIENT KEPT CLEAN AND DRY ALL NEEDS MEET WILL CONTINUE TO MONITOR.
[2022-09-22 07:00] VITALS: BP 152/88
--- NOTE | 2022-09-22 07:15 | NUR ---
MS RN OPENING NOTE RECEIVED PT RESTING IN BED, RESPONSIVE TO TACTILE STIMULI. A/O X0 AND NONVERBAL. PT ON O2 @ 2LPM VIA NC, TOLERATING WELL. NO SOB OR S/S OF RESPIRATORY DISTRESS. WITH IV ACCESS R WRIST 24G, INTACT AND PATENT. WITH G-TUBE RUNNING GLUCERNA 1.2 @ 55 ML/HR, TOLERATING WELL. SAFETY PRECAUTIONS IN PLACE. MAINTAINED ON MODERATE TO HIGH BACK REST. ON STRICT ASPIRATION PRECUATION. BED IN LOWEST LOCKED POSITION, HOB ELEVATED, SIDE RAILS UP X3, AND CALL LIGHT AND TABLE WITHIN REACH. WILL CONTINUE WITH PLAN OF CARE.
[2022-09-22] MEDS: BLOOD SUGAR DIAGNOSTIC 1 EACH STRIP VI SCH ×4 (07:56→22:00)
[2022-09-22] MEDS: DOCUSATE SODIUM LIQ 100 MG/10 ML UDC GT SCH (08:49)
[2022-09-22] MEDS: ACETAMINOPHEN 650 MG/20.3 ML UDC GT SCH (08:49)
[2022-09-22] MEDS: BISACODYL SUPP (10 MG) 10 MG/SUPP.RECT SUPP.RECT RC SCH (08:50)
[2022-09-22] MEDS: CARBIDOPA/LEVODOPA 25/100 MG 1 UDTAB GT SCH ×4 (08:50→21:55)
[2022-09-22] MEDS: BACLOFEN (10 MG) 10 MG TABLET GT SCH ×3 (08:50→16:53)
[2022-09-22] MEDS: ALLOPURINOL 100 MG TABLET GT SCH (08:50)
[2022-09-22] MEDS: LISINOPRIL (10MG) 10 MG TABLET GT SCH (09:10)
--- NOTE | 2022-09-22 09:10 | NUR ---
MS RN NOTE SEEN BY DR. WRIGHT
[2022-09-22] MEDS: PROSOURCE / PROSTAT (PYXIS) 30 ML UDC GT SCH ×3 (09:26→16:57)
[2022-09-22] MEDS: THERAHONEY GEL 1.5 OZ TUBE TP SCH (09:53)
[2022-09-22] MEDS: MUPIROCIN OINT 2% 22 GM TUBE NS SCH ×2 (09:54→21:55)
[2022-09-22] MEDS: LEVOFLOXACIN (250MG) 250 MG TABLET GT SCH (12:23)
[2022-09-22] MEDS: GLUCERNA 1.2 1,000 ML BOTTLE GT PRN (14:15)
--- NOTE | 2022-09-22 14:30 | NUR ---
MS RN NOTE SEEN BY DR. MEZA
[2022-09-22] MEDS: ENOXAPARIN SODIUM 40 MG/0.4 ML DISP.SYRIN SQ SCH (15:01)
[2022-09-22 16:00] VITALS: BP 108/58
--- NOTE | 2022-09-22 18:38 | NUR ---
MS RN CLOSING NOTE PT RESTING IN BED, RESPONSIVE TO TACTILE STIMULI. A/O X0 AND NONVERBAL. PT ON O2 @ 2LPM VIA NC, TOLERATING WELL. NO SOB OR S/S OF RESPIRATORY DISTRESS. WITH IV ACCESS R WRIST 24G, INTACT AND PATENT. WITH G-TUBE RUNNING GLUCERNA 1.2 @ 55 ML/HR, TOLERATING WELL. SAFETY PRECAUTIONS IN PLACE. MAINTAINED ON MODERATE TO HIGH BACK REST. ON STRICT ASPIRATION PRECAUTION. BED IN LOWEST LOCKED POSITION, HOB ELEVATED, SIDE RAILS UP X3, AND CALL LIGHT AND TABLE WITHIN REACH. ENDORSED TO NEXT SHIFT FOR CONTINUITY OF CARE.
--- NOTE | 2022-09-22 19:49 | NUR ---
MS RN OPENING NOTES: RECEIVED PATIENT SLEEPIN BED COMFORTABLY,AROUSABLETO VERBAL STIMULI, BEDIN LOW POSITION CALL LIGHTS WITHIN REACH, NO COMPLAIN OF PAIN AND DISCOMFORT AT THIS TIME, NO FACIAL GRIMACING WAS OBSERVED, ON O2 INHALATION AT2LPM SATURATING WELL, ON G TUBE FEEDING OF GLUCERNA 1.2@55ML/HR INFUSING WELL, HOB TOREMAIN AT 45 DEGREE, ASPIRATION PRECAUTION, ON CONDOM CATHETER-50CC URINE CLEAR YELLOW, PATIENT KEPT CLEAN AND DRY ALL NEEDS MET WILL CONTINUE TO MONITOR.
[2022-09-22 20:00] VITALS: BP 128/65
[2022-09-22] MEDS: ATORVASTATIN 10 MG TABLET GT SCH (21:55)
[2022-09-22] MEDS: SENNOSIDES 8.6 MG TABLET GT SCH (21:55)
--- NOTE | 2022-09-22 22:30 | NUR ---
RN NOTES: BLOOD SUGAR- 232/ 4 UNITS INSULIN GIVEN PER SLIDING SCALE
[2022-09-22] MEDS: INSULIN GLARGINE, 100 UNIT/ML CARTRIDGE SQ SCH (22:50)
[2022-09-22] MEDS: *INSULIN REGULAR(HUMULIN R)HUM 100 UNIT/ML VIAL SQ PRN (22:55)
[2022-09-23] MEDS: IPRATROPIUM NEB FS 0.5 MG/2.5 ML AMPUL.NEB NEB SCH ×4 (01:42→20:06)
[2022-09-23 06:08] LABS: CALCIUM, SERUM 9.6 mg/dL (8.5-10.1); CREATININE 0.7 mg/dL (0.6-1.3); POTASSIUM 3.9 mmol/L (3.5-5.1)
--- NOTE | 2022-09-23 06:46 | NUR ---
RN NOTES: BLOOD SUGAR-194/ 3 UNITS REGULARINSULIN GIVEN PER SLIDING SCALE.
--- NOTE | 2022-09-23 06:47 | NUR ---
RN CLOSING NOTES: PATIENT SLEEP IN BED COMFORTABLY, AROUSABLE TO VERBAL AND TACTILE STIMULI, BLINKS EYES, BED IN LOW POSITION CALL LIGHTS WITHIN REACH, NO COMPLAIN OF PAIN AND DISCOMFORT AT THIS TIME, NO FACIAL GRIMACING WAS OBSERVED, ON GTUBE FEEDING OF GLUCERNA 1.2 @55ML/HR INFUSING WELL, PATIENT ON CONDOM CATHETER-350CC URINE OUTPUT, CLEAR YELLOW, PATIENT REPOSITION, SUCTION NEEDED DRESSING CHANGE, KEPT CLEAN AND DRY ALL NEEDS MET, WILL CONTINUE TO MONITOR.
[2022-09-23] MEDS: INSULIN REGULAR, HUMAN 100 UNIT/ML 3 ML VIAL SQ PRN ×3 (06:58→17:35)
[2022-09-23] MEDS: BLOOD SUGAR DIAGNOSTIC 1 EACH STRIP VI SCH ×4 (07:00→21:53)
--- NOTE | 2022-09-23 07:27 | NUR ---
RN OPENING NOTE PATIENT AWAKE IN BED RESTING, A/O X 0, NON-VERBAL, OPENS EYES. NO S/S OF PAIN NOTED AT THIS TIME. ON 2L OXYGEN VIA NC, NO SHORTNESS OF BREATH, NO DISTRESS NOTED. IV ACCESS R WRIST #24G, INTACT, PATENT AND FLUSHING WELL. PATIENT HAVE G-TUBE IN PLACE, RUNNING GLUCERNA 1.2 @ 55ML/HR X 24HRS. PATIENT WITH CONDOM CATH, IN PLACE. FALL AND SAFETY MEASURES IN PLACE, BED ALARM ON, BED IN LOW AND LOCK POSITION, CALL LIGHT AND TABLE WITHIN EASY REACH, SIDE RAILS UP X2. WILL CONTINUE TO MONITOR.
[2022-09-23 08:00] VITALS: BP 125/72
[2022-09-23] MEDS: PROSOURCE / PROSTAT (PYXIS) 30 ML UDC GT SCH ×3 (09:46→17:29)
[2022-09-23] MEDS: DOCUSATE SODIUM LIQ 100 MG/10 ML UDC GT SCH (09:47)
[2022-09-23] MEDS: ACETAMINOPHEN 650 MG/20.3 ML UDC GT SCH (09:47)
[2022-09-23] MEDS: ALLOPURINOL 100 MG TABLET GT SCH (09:47)
[2022-09-23] MEDS: CARBIDOPA/LEVODOPA 25/100 MG 1 UDTAB GT SCH ×4 (09:47→21:11)
[2022-09-23] MEDS: BACLOFEN (10 MG) 10 MG TABLET GT SCH ×3 (09:48→17:29)
[2022-09-23] MEDS: LISINOPRIL (10MG) 10 MG TABLET GT SCH (09:48)
[2022-09-23] MEDS: MUPIROCIN OINT 2% 22 GM TUBE NS SCH ×2 (09:49→21:34)
[2022-09-23] MEDS: BISACODYL SUPP (10 MG) 10 MG/SUPP.RECT SUPP.RECT RC SCH (09:49)
[2022-09-23] MEDS: THERAHONEY GEL 1.5 OZ TUBE TP SCH (09:50)
[2022-09-23] MEDS: GLUCERNA 1.2 1,000 ML BOTTLE GT PRN (11:06)
[2022-09-23] MEDS: LEVOFLOXACIN (250MG) 250 MG TABLET GT SCH (12:55)
[2022-09-23] MEDS: ENOXAPARIN SODIUM 40 MG/0.4 ML DISP.SYRIN SQ SCH (15:06)
[2022-09-23 16:00] VITALS: BP 120/62
--- NOTE | 2022-09-23 18:42 | NUR ---
RN CLOSING NOTE PATIENT AWAKE IN BED RESTING, A/O X 0, NON-VERBAL, OPENS EYES. NO S/S OF PAIN NOTED AT THIS TIME. ON 2L OXYGEN VIA NC, NO SHORTNESS OF BREATH, NO DISTRESS NOTED. IV ACCESS R WRIST #24G, INTACT, PATENT AND FLUSHING WELL. PATIENT HAVE G-TUBE IN PLACE, RUNNING GLUCERNA 1.2 @ 55ML/HR X 24HRS. PATIENT WITH CONDOM CATH, IN PLACE, OUTPUT 600ML, YELLOW URINE. SCHEDULE MEDICATIONS ADMINISTERED. WOUND CARE IMPLEMENTED. PATIENT WAS TURNED AND REPOSITIONED PER PROTOCOL. FALL AND SAFETY MEASURES IN PLACE, BED ALARM ON, BED IN LOW AND LOCK POSITION, CALL LIGHT AND TABLE WITHIN EASY REACH, SIDE RAILS UP X2. ALL NEEDS ATTENDED AND ANTICIPATED. WILL ENDORSE TO ROOM COOLER INSTALLER NURSE.
[2022-09-23 20:00] VITALS: BP 122/69
[2022-09-23] MEDS: SENNOSIDES 8.6 MG TABLET GT SCH (21:11)
[2022-09-23] MEDS: ATORVASTATIN 10 MG TABLET GT SCH (21:11)
[2022-09-23] MEDS: INSULIN GLARGINE, 100 UNIT/ML CARTRIDGE SQ SCH (22:05)
[2022-09-23] MEDS: *INSULIN REGULAR(HUMULIN R)HUM 100 UNIT/ML VIAL SQ PRN (22:14)
[2022-09-24] MEDS: IPRATROPIUM NEB FS 0.5 MG/2.5 ML AMPUL.NEB NEB SCH ×4 (01:59→19:40)
--- NOTE | 2022-09-24 04:54 | NUR ---
RN OPENING NOTE PT A/O X 0, NONE VERBAL. PT ON NC, 2L, TOLERATING WELL, BREATHING EVEN AND UNLABORED @THIS TIME. PT IV ACCESS PRESENT ON RIGHT WRIST # 24G ON SALINE LOCK, PATENT AND FLUSHES WELL. G-TUBE FEEDING IS IN PLACED RUNNING AT 55MLS/HR X 24 HRS, WITH NO RESIDUAL. SAFETY MEASURES IS MAINTAINED. BED IS AT ITS LOWEST & LOCKED POSITION, SIDE RAILS UP X 2, BED SIDE TABLE AND CALL LIGHT IS WITHIN REACH.. WILL CONTINUE TO MONITOR PT ACCORDINGLY. Addendum: 09/24/22 at 0509 by BRITTNEY GARDNER RN RN OPENING NOTE @ DATE: 09/23/22 TIME: 1899
--- NOTE | 2022-09-24 06:36 | NUR ---
RN CLOSING NOTE PT IS AWAKE, A/O X 0, NONE VERBAL. IN NC 2 L, NO S/S OF RESPIRATORY DISTRESS NOTED. IV SITE ON RIGHT WRIST #24 SALINE LOCK. WOUND CARE PROVIDED ORDERED. CONDOM CATHETER IS IN PLACE AND DRAINING YELLOW URINE. GT FEEDING IS RUNNING @ 55 MLS/HR, NO RESIDUAL, PT TOLERATED WELL. ROUTINE MEDS PROVIDED. SAFETY MEASURES MAINTAINED WITH BED IN LOWEST AND LOCKED POSITION. BED ALARM ON, CALL LIGHT AND TABLE WITHIN REACH. SIDE RAILS UP X2. WILL ENDORSE TO THE NEXT SHIFT.
[2022-09-24 06:53] LABS: CALCIUM, SERUM 9.6 mg/dL (8.5-10.1); CARBON DIOXIDE 28 mmol/L (21-32); CHLORIDE 100 mmol/L (98-107); CREATININE 0.8 mg/dL (0.6-1.3); GLUCOSE 228 mg/dL (74-106); SODIUM SERUM 134 mmol/L (136-145); UREA NITROGEN, BLOOD 33 mg/dL (7-18)
[2022-09-24 07:00] VITALS: BP 143/76
[2022-09-24] MEDS: BLOOD SUGAR DIAGNOSTIC 1 EACH STRIP VI SCH ×4 (07:00→22:33)
[2022-09-24] MEDS: INSULIN REGULAR, HUMAN 100 UNIT/ML 3 ML VIAL SQ PRN ×3 (07:09→16:59)
[2022-09-24] MEDS: LISINOPRIL (10MG) 10 MG TABLET GT SCH (08:55)
[2022-09-24] MEDS: DOCUSATE SODIUM LIQ 100 MG/10 ML UDC GT SCH (08:55)
[2022-09-24] MEDS: BISACODYL SUPP (10 MG) 10 MG/SUPP.RECT SUPP.RECT RC SCH (08:55)
[2022-09-24] MEDS: ACETAMINOPHEN 650 MG/20.3 ML UDC GT SCH (08:55)
[2022-09-24] MEDS: PROSOURCE / PROSTAT (PYXIS) 30 ML UDC GT SCH ×3 (08:55→16:18)
[2022-09-24] MEDS: CARBIDOPA/LEVODOPA 25/100 MG 1 UDTAB GT SCH ×4 (08:55→21:32)
[2022-09-24] MEDS: BACLOFEN (10 MG) 10 MG TABLET GT SCH ×3 (08:55→16:18)
[2022-09-24] MEDS: ALLOPURINOL 100 MG TABLET GT SCH (08:55)
[2022-09-24] MEDS: MUPIROCIN OINT 2% 22 GM TUBE NS SCH ×2 (08:56→21:00)
[2022-09-24] MEDS: THERAHONEY GEL 1.5 OZ TUBE TP SCH (08:56)
[2022-09-24] MEDS: LEVOFLOXACIN (250MG) 250 MG TABLET GT SCH (12:24)
[2022-09-24] MEDS: ENOXAPARIN SODIUM 40 MG/0.4 ML DISP.SYRIN SQ SCH (14:57)
[2022-09-24] MEDS: GLUCERNA 1.2 1,000 ML BOTTLE GT PRN (15:47)
[2022-09-24 16:00] VITALS: BP 103/61
--- NOTE | 2022-09-24 18:41 | NUR ---
RN CLOSING NOTE PATIENT AWAKE IN BED RESTING, A/O X 0, NON-VERBAL, OPENS EYES. NO S/S OF PAIN NOTED AT THIS TIME. ON 2L OXYGEN VIA NC, NO SHORTNESS OF BREATH, NO DISTRESS NOTED. IV ACCESS R WRIST #24G, INTACT, PATENT AND FLUSHING WELL. PATIENT HAVE G-TUBE IN PLACE, RUNNING GLUCERNA 1.2 @ 55ML/HR X 24HRS. PATIENT WITH CONDOM CATH, IN PLACE, OUTPUT 300 ML, YELLOW URINE. SCHEDULE MEDICATIONS ADMINISTERED. WOUND CARE IMPLEMENTED. PATIENT WAS TURNED AND REPOSITIONED PER PROTOCOL. FALL AND SAFETY MEASURES IN PLACE, BED ALARM ON, BED IN LOW AND LOCK POSITION, CALL LIGHT AND TABLE WITHIN EASY REACH, SIDE RAILS UP X2. ALL NEEDS ATTENDED AND ANTICIPATED. WILL ENDORSE TO SECURITY AUDITOR NURSE.
--- NOTE | 2022-09-24 19:00 | NUR ---
RN OPENING NOTES PT IS ASLEEP, A/O X 0, NONE VERBAL, ABLE TO OPEN EYES. PT IS ON NC 2L O2, TOLERATING WELL, BREATHING EVEN & UNLABORED @ THIS TIME. IV ACCESS PRESENT ON R WRIST #24G SALINE LOCK, PATENT, INTACT AND FLUSHES WELL. GT IN PLACE RUNNING 1.2 ML GLUCERNA @ 55 MLS/HR, NO RESIDUAL. CONDOM CATH IS IN PLACE DRAINING YELLOW URINE. SKIN IS WARM AND DRY. SAFETY MEASURES INITIATED. BED PLACED IN LOWEST AND LOCK POSITION, SIDERAILS UP X 2, BESIDE TABLE AND CALL LIGHT WITHIN REACH, BED ALARM IS ON. TO CONTINUE TO MONITOR PT. ACCORDINGLY.
[2022-09-24 20:00] VITALS: BP 96/50
[2022-09-24] MEDS: ATORVASTATIN 10 MG TABLET GT SCH (21:32)
[2022-09-24] MEDS: SENNOSIDES 8.6 MG TABLET GT SCH (21:32)
[2022-09-24] MEDS: INSULIN GLARGINE, 100 UNIT/ML CARTRIDGE SQ SCH (22:34)
[2022-09-24] MEDS: *INSULIN REGULAR(HUMULIN R)HUM 100 UNIT/ML VIAL SQ PRN (22:37)
[2022-09-25] MEDS: IPRATROPIUM NEB FS 0.5 MG/2.5 ML AMPUL.NEB NEB SCH ×3 (01:34→13:27)
[2022-09-25 06:43] LABS: CALCIUM, SERUM 9.7 mg/dL (8.5-10.1); CARBON DIOXIDE 32 mmol/L (21-32); CHLORIDE 103 mmol/L (98-107); CREATININE 0.7 mg/dL (0.6-1.3); GLUCOSE 213 mg/dL (74-106); SODIUM SERUM 140 mmol/L (136-145); UREA NITROGEN, BLOOD 39 mg/dL (7-18)
[2022-09-25] MEDS: BLOOD SUGAR DIAGNOSTIC 1 EACH STRIP VI SCH ×2 (06:46→12:04)
[2022-09-25] MEDS: INSULIN REGULAR, HUMAN 100 UNIT/ML 3 ML VIAL SQ PRN ×2 (06:51→12:09)
--- NOTE | 2022-09-25 07:07 | NUR ---
RN CLOSING NOTES PT ASLEEP AND RESTING COMFORTABLY IN BED, HOB ELEVATED AT ALL TIMES. A/O X 0, NONE VERBAL, OPEN EYES. NO S/S OF RESPIRATORY DISTRESS NOTED. IV SITE ON RIGHT WRIST # 24 G, SALINE LOCK. GT IS IN PLACED RUNNING 1.2L OF GLUCERNA @ 55MLS/HR. CONDOM CATHETER IN PLACE DRAINING YELLOW URINE. MEDICATIONS GIVEN ORDERED. WOUND CARE PROVIDED ORDERED. SAFETY MEASURES INITIATED. BED PLACED IN LOWEST AND LOCK POSITION, SIDERAILS UP X 2, BESIDE TABLE AND CALL LIGHT WITHIN REACH, BED ALARN IS ON. WILL ENDORSE TO THE NEXT SHIFT FOR CONTINUITY OF CARE.
--- NOTE | 2022-09-25 07:11 | NUR ---
MS RN OPENING NOTES RECEIVED PATIENT SLEEPING IN BED, ON 2 L OF O2 VIA NC. NO S/S OF RESPIRATORY DISTRESS. PATIENT NON-VERBAL, RESPONDS TO VERBAL AND TACTILE STIMULI. IV ACCESS R WRIST #24 S/L. INTACT AND PATENT. NO S/S OF INFILTRATION. ON G-TUBE FEEDING GLUCERNA @55 ML/HR. TOLERATING WELL. SKIN ISSUES: SACRUM UNSTAGEABLE, BILATERAL EAR, HEEL WOUNDS, SCALP WOUND, AND BILATERAL UPPER EXTREMITY EDEMA. INCONTINENT. USES DIAPER. SAFETY MEASURES IN PLACE: BED LOCKED AND IN LOWEST POSITION, SIDE RAILS UP x3, CALL LIGHT WITHIN REACH, HOB ELEVATED. WILL CONTINUE TO MONITOR.
[2022-09-25] MEDS: CARBIDOPA/LEVODOPA 25/100 MG 1 UDTAB GT SCH ×2 (08:21→12:05)
[2022-09-25] MEDS: LISINOPRIL (10MG) 10 MG TABLET GT SCH (08:22)
[2022-09-25] MEDS: BISACODYL SUPP (10 MG) 10 MG/SUPP.RECT SUPP.RECT RC SCH (08:22)
[2022-09-25] MEDS: ALLOPURINOL 100 MG TABLET GT SCH (08:22)
[2022-09-25] MEDS: PROSOURCE / PROSTAT (PYXIS) 30 ML UDC GT SCH ×2 (08:23→12:06)
[2022-09-25] MEDS: ACETAMINOPHEN 650 MG/20.3 ML UDC GT SCH (08:23)
[2022-09-25] MEDS: DOCUSATE SODIUM LIQ 100 MG/10 ML UDC GT SCH (08:23)
[2022-09-25] MEDS: BACLOFEN (10 MG) 10 MG TABLET GT SCH ×2 (08:23→12:05)
[2022-09-25] MEDS: MUPIROCIN OINT 2% 22 GM TUBE NS SCH (08:24)
[2022-09-25] MEDS: THERAHONEY GEL 1.5 OZ TUBE TP SCH (08:24)
[2022-09-25 09:19] VITALS: BP 115/63
[2022-09-25] MEDS: LEVOFLOXACIN (250MG) 250 MG TABLET GT SCH (12:05)
--- NOTE | 2022-09-25 15:14 | NUR ---
WAITER/WAITRESS INFORMAL NOTES PATIENT DISCHARGED BACK TO SNF. REPORT GIVEN TO JESSEE DURAN. PATIENT STABLE ON 2L O2, STATING WELL, NO S/S OF RESPIRATORY DISTRESS. NON-VERBAL. PATIENT MEDICALLY STABLE, NO S/S OF PAIN OR DISCOMFORT NOTED. PATIENT TOLERATING G-TUBE FEEDING WELL. IV ACCESS REMOVED, PRESSURE DRESSING APPLIED. ID BAND REMOVED. PATIENT UNABLE TO COMPREHEND DISCHARGE INSTRUCTIONS AND HEALTH TEACHINGS. ALL FORMS AND PHOTOS OF SKIN ISSUES FILED INTO CHART. PATIENT LEFT UNIT @1445 ACCOMPANIED BY TWO cda teacher. CHARGE NURSE AND MD AWARE OF DISCHARGE.
== END 2022-09-25 14:40 | DRG 853 ==
LOC: ER 10:33 → TELE 13:10 → MED 09-19 13:19
PROVIDERS: ADMIT Internal Medicine; ATTEND Legal Medicine
PROC: 0KBP0ZZ Excision of Left Hip Muscle, Open Approach (ICD-10-PCS; principal; 2022-09-20)
PROC: 0KBN0ZZ Excision of Right Hip Muscle, Open Approach (ICD-10-PCS; 2022-09-20)
PROC: 0HB2XZZ Excision of Right Ear Skin, External Approach (ICD-10-PCS; 2022-09-20)
DX: A41.9 Sepsis, unspecified organism (principal); E43 Unspecified severe protein-calorie malnutrition; L89.894 Pressure ulcer of other site, stage 4; J15.6 Pneumonia due to other Gram-negative bacteria; J96.01 Acute respiratory failure with hypoxia; G92.8 Other toxic encephalopathy; N17.0 Acute kidney failure with tubular necrosis; J69.0 Pneumonitis due to inhalation of food and vomit; R53.2 Functional quadriplegia; J44.0 Chronic obstructive pulmonary disease with (acute) lower respiratory infection; E87.1 Hypo-osmolality and hyponatremia; D68.59 Other primary thrombophilia; E11.9 Type 2 diabetes mellitus without complications; G20 Parkinson's disease; Z20.822 Contact with and (suspected) exposure to COVID-19; F02.80 Dementia in other diseases classified elsewhere, unspecified severity, without behavioral disturbance, psychotic disturbance, mood disturbance, and anxiety; I10 Essential (primary) hypertension; M15.9 Polyosteoarthritis, unspecified; R13.10 Dysphagia, unspecified; Z93.1 Gastrostomy status; R26.9 Unspecified abnormalities of gait and mobility; F25.9 Schizoaffective disorder, unspecified; F41.9 Anxiety disorder, unspecified; Z88.0 Allergy status to penicillin; Z91.041 Radiographic dye allergy status; Z91.018 Allergy to other foods; Z79.4 Long term (current) use of insulin; Z79.899 Other long term (current) drug therapy; Z79.84 Long term (current) use of oral hypoglycemic drugs; E86.1 Hypovolemia; M10.9 Gout, unspecified; D63.8 Anemia in other chronic diseases classified elsewhere; E88.09 Other disorders of plasma-protein metabolism, not elsewhere classified; E78.5 Hyperlipidemia, unspecified; L89.626 Pressure-induced deep tissue damage of left heel; L89.616 Pressure-induced deep tissue damage of right heel; Z74.01 Bed confinement status; S01.00XA Unspecified open wound of scalp, initial encounter; X58.XXXA Exposure to other specified factors, initial encounter; Y92.9 Unspecified place or not applicable; L89.890 Pressure ulcer of other site, unstageable; Y95 Nosocomial condition
CPT/HCPCS: 31720; 36415; 71045-TC; 80048-TC; 80053-TC; 80202-TC; 81001; 82962-TC; 83605-TC; 83690-TC; 83735-TC; 83880; 84100-TC; 84484-TC; 85025-TC; 85730-TC; 87040-TC; 87081-TC; 94799-TC; A4216; A4349; A4624; A6253; A6403; C9803; G0378; J1650; J1815; J1956; J3370; J3475; J3490; J7030; J7060